=== PATIENT | male | born 1965 | race Caucasian/White ===

== ENCOUNTER 2021-06-25 09:05 | Observation (INO) | payer BC ==
[~2021-06-25] VITALS: Ht 182.9 cm; Wt 127.4 kg
--- NOTE | 2021-06-25 09:17 | PHYS DOC ---
General Adult EDM: Chief Complaint: CHEST PAIN HPI: HPI: Patient is a 55 year old male who presents with substernal and left-sided chest pressure, with dyspnea and dizziness and nausea. 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 He felt like he had significant pressure on his chest while he was lying down working. Symptoms are slightly improved now. He reports less severe chest pain symptoms intermittently for several months, however today's symptoms are much worse. Denies cough, hemoptysis, syncope, calf pain. He has chronic lower extremity swelling which is unchanged. He denies fevers or chills. He reports that his father had his first heart attack when he was age 51, and had severe coronary disease and ultimately developed what sounds like severe cardiomyopathy and congestive heart failure. The patient himself has no known history of any cardiac problems, though he has never seen a doctor of dental surgery and had frequently blown off his previous chest pain symptoms. Denies recent travel, surgery, hospitalization. Review of Systems: Review of Systems: Constitutional: Denies fever or chills. [] Eyes: Denies change in visual acuity. [] HENT: Denies nasal congestion or sore throat. [] Respiratory: Denies cough. Reports dyspnea and chest pressure. Cardiovascular: Reports chest pain/pressure. GI: Denies abdominal pain, nausea, vomiting, bloody stools or diarrhea. [] : Denies dysuria. [] Musculoskeletal: Denies back pain or joint pain. He has chronic lower ex tremity swelling, which is unchanged and not painful. Integument: Denies rash. [] Neurologic: Denies headache, focal weakness or sensory changes. Denies syncope. Psychiatric: Denies depression or anxiety. [] Heart Score: C/O Chest Pain: Yes HEART Score for Chest Pain: HEART Score for Chest Pain Response (Comments) Value History Highly Suspicious 2 ECG Nonspecific Repolarizatio 1 Age >45 - < 65 1 Risk Factors >3 Risk Factors or Hx CAD 2 Troponin < Normal Limit 0 Total 6 Risk Factors: Risk Factors: DM, Current or recent (<one month) smoker, HTN, HLP, family history of CAD, obesity. Risk Scores: Score 0 - 3: 2.5% MACE over next 6 weeks - Discharge Home Score 4 - 6: 20.3% MACE over next 6 weeks - Admit for Clinical Observation Score 7 - 10: 72.7% MACE over next 6 weeks - Early Invasive Strategies Physical Exam: PE: Constitutional: Well developed, well nourished, no acute distress, non-toxic appearance. [] HENT: Normocephalic, atraumatic Eyes:, sclera are anicteric Neck: Normal range of motion, no tenderness, trachea is midline. Cardiovascular:Heart rate regular rhythm, +2 radial and posterior tibial pulses bilaterally. Lungs & Thorax: Bilateral breath sounds clear to auscultation [] Abdomen: Bowel sounds normal, soft, no tenderness, no masses, no pulsatile masses. [] Skin: Warm, dry, no erythema, no rash. [] Extremities: No tenderness, no cyanosis, no clubbing, ROM intact, bilateral lower extremity, nonpitting, symmetric edema. No calf tenderness. Neurologic: Alert and oriented X 3, normal motor function, normal sensory function, no focal deficits noted. [] Psychologic: Affect normal, judgement normal, mood normal. He is pleasant and cooperative. EKG: EKG: EKG is interpreted at 09 16 Rhythm is sinus Rate is 69 bpm [place] is normal No STEMI EKG is interpreted at 1035 Rhythm is sinus Rate is 67 bpm [place] is normal No STEMI Radiology/Procedures: Radiology/Procedures: IMAGING REPORT Signed PATIENT: OSWALD ZACARIAS ACCOUNT: [id number] : 1965 LOCATION: ER AGE: 55 SEX: M EXAM STATUS: PRE ER ORD. PHYSICIAN: IAN VALDEZ DO REASON: chest pain PROCEDURE: PORTABLE CHEST 1V EXAM: Chest, single view. HISTORY: Chest pain. COMPARISON: 09/25/2020 FINDINGS: A frontal view of the chest is obtained. There are chronic appearing interstitial changes. There is no consolidation, pleural effusion or pneumo thorax. The heart is normal in size. There is cervical spinal fusion instrumentation. There has been suspected incidental distal right clavicular resection. IMPRESSION: No acute pulmonary finding. Electronically signed by: Shaunna Valdes MD (06/25/2021 9:53 AM) [id number] DICTATED and SIGNED BY: SHAUNNA VALDES MD DATE: 06/25/21 [id number] Course & Med Decision Making: Course & Med Decision Making Pertinent Labs and Imaging studies reviewed. (See chart for details) The patient is given aspirin. Sublingual nitroglycerin resolved his pain. His blood pressure is stable, he is resting comfortably, he feels much better. I have discussed the findings, differential diagnosis and plan of care with him. I have recommended admission for serial troponin exams and cardiology consultation. He is agreeable to this. He is accepted for admission by Dr. Mendes. Blake Disclaimer: Blake Disclaimer: This electronic medical record was generated, in whole or in part, using a voice recognition dictation system. Departure Departure Impression: Primary Impression: Chest pain Qualified Codes: R07.2 - Precordial pain Disposition: ADMITTED INPATIENT Admitting Physician: LANIE Condition: STABLE COURTNEYIAN DO Jun 25, 2021 09:17
[2021-06-25] MEDS ORDERED: ASPIRIN ENTERIC COATED 325 MG TABLET.DR. PO ONE (09:45)
--- NOTE | 2021-06-25 09:56 | RAD ---
EXAM: Chest, single view. HISTORY: Chest pain. COMPARISON: 09/25/2020 FINDINGS: A frontal view of the chest is obtained. There are chronic appearing interstitial changes. There is no consolidation, pleural effusion or pneumothorax. The heart is normal in size. There is ce rvical spinal fusion instrumentation. There has been suspected incidental distal right clavicular res ection. IMPRESSION: No acute pulmonary finding. Electronically signed by: Shaunna Cobian MD (06/25/2021 9:53 AM) [id number]
[2021-06-25 10:04] LABS: BASO # 0.1 x10^3/uL (0.0-0.2); BASO % 1 % (0-3); EOS # 0.1 x10^3/uL (0.0-0.7); EOS % 1 % (0-3); HEMATOCRIT 35.7 % (39.0-53.0); HEMOGLOBIN 12.2 g/dL (13.0-17.5); LYMPH # 1.7 x10^3/uL (1.0-4.8); LYMPH % 25 % (24-48); MEAN CORPUSCULAR HEMOGLOBIN 32 pg (25-35); MEAN CORPUSCULAR HGB CONC 34 g/dL (31-37); MEAN CORPUSCULAR VOLUME 94 fL (79-100); MONO # 0.4 x10^3/uL (0.0-1.1); MONO % 7 % (0-9); NEUT # 4.5 x10^3/uL (1.8-7.7); NEUT % 66 % (31-73); PLATELET COUNT 276 x10^3/uL (140-400); RED BLOOD COUNT 3.79 x10^6/uL (4.30-5.70); RED CELL DISTRIBUTION WIDTH 13.7 % (11.5-14.5); WHITE BLOOD COUNT 6.8 x10^3/uL (4.0-11.0)
[2021-06-25] MEDS: NITROGLYCERIN SUBLINGUAL 0.4 MG BOTTLE OF 25. SL PRN ×3 (10:05→10:31)
[2021-06-25 10:09] LABS: CALCIUM 7.6 mg/dL (8.5-10.1); CREATININE 0.7 mg/dL (0.7-1.3); GFR 117.5; MAGNESIUM 1.8 mg/dL (1.8-2.4); POTASSIUM 3.5 mmol/L (3.5-5.1)
--- NOTE | 2021-06-25 10:12 | EKG ---
[facility] [address] [place] [address] Test Date: 2021-06-25 Test Time: 09:14:25 Pat Name: OSWALD ZACARIAS Department: Room: Gender: M Vp Strategy: : 1965 Requested By: IAN VALDEZ Order Number: [id number] Reading MD: Cong Martini MD Measurements Intervals [place] Rate: 69 P: 29 AR: 148 QRS: 19 QRSD: 86 T: 24 QT: 392 QTc: 422 Interpretive Statements SINUS RHYTHM Electronically Signed On 06-25-2021 10:59:01 CDT by Cong Martini MD
[2021-06-25 10:56] LABS: BILIRUBIN,URINE NEGATIVE (NEG); CLARITY,URINE CLEAR; COLOR,URINE YELLOW; NITRITE,URINE NEGATIVE (NEG); PH,URINE 7.5 (<5.0-8.0); PROTEIN,URINE NEGATIVE (NEG-TRACE); UROBILINOGEN,URINE 0.2 mg/dL (0.2 mg/dL)
[2021-06-25] MEDS ORDERED: ONDANSETRON PF 4 MG/2 ML VIAL. IVP PRN (11:00)
[2021-06-25 11:10] LABS: BACTERIA,URINE 0 /HPF (0-FEW); RBC,URINE OCC /HPF (0-2); WBC,URINE 0 /HPF (0-4)
--- NOTE | 2021-06-25 11:44 | EKG ---
[facility] [address] [place] [address] Test Date: 2021-06-25 Test Time: 10:32:55 Pat Name: OSWALD ZACARIAS Department: Room: Gender: M Counter Server: : 1965 Requested By: IAN VALDEZ Order Number: [id number] Reading MD: Cong Martini MD Measurements Intervals [place] Rate: 67 P: 25 [place]: 162 QRS: 17 QRSD: 86 T: 24 QT: 428 QTc: 455 Interpretive Statements SINUS RHYTHM Electronically Signed On 06-25-2021 11:44:04 CDT by Cong Martini MD
--- NOTE | 2021-06-25 12:07 | PDOC2 ---
EITAN HOLLIDAY CONTRACT WRITER 06/25/21 1207: CARDIAC CONSULT DATE OF CONSULT Date of Consult DATE: 06/25/21 TIME: 12:04 REASON FOR CONSULT Reason for Consult: Chest pain REFERRING PHYSICIAN Referring Physician: Dr. Hazel SOURCE Source: Chart review, Patient HISTORY OF PRESENT ILLNESS HISTORY OF PRESENT ILLNESS This is a 55 yo male who presented secondary to chest pain. Patient reports intermittent sharp pain in his central chest over the last months. Has been occurring more frequently here recently. 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 This morning at work, developed pressure that radiated to his left arm and he reports heaviness in his left arm. Was fatigued and felt short of breath. Was also diaphoretic. Given significance of symptoms, he decided to come to the ED for further evaluation and treatment. No recent fevers or illness. No recent cardiac workup. Had stress test many years ago. PAST MEDICAL HISTORY Cardiovascular: HTN Endocrine: Diabetes ((borderline)) PAST SURGICAL HISTORY Past Surgical History: Other (left knee, right shoulder, and cervical neck surgery ) FAMILY HISTORY Family History: Cancer, Diabetes, Heart Disease, Stroke SOCIAL HISTORY Smoke: 1 pack per day ALCOHOL: social Drugs: None Lives: Alone CURRENT MEDICATIONS CURRENT MEDICATIONS Current Medications Medications (Trade) Dose Ordered Sig/Juanjose Route PRN Reason Start Time Stop Time Status Last Admin Dose Admin Aspirin (Ecotrin) 325 mg 1X ONCE PO 06/25/21 09:45 06/25/21 09:48 DC 06/25/21 10:05 Nitroglycerin (Nitrostat) 0.4 mg PRN Q5MIN PRN SL CHEST PAIN 06/25/21 09:45 06/25/21 10:31 ALLERGIES ALLERGIES: Coded Allergies: No Known Drug Allergies (Unverified , 06/25/21) ROS Review of System 14 point ROS conducted with pertinent positives noted above in HPI PHYSICAL EXAM General: Alert, Oriented X3, Cooperative, No acute distress HEENT: Atraumatic, Mucous membr. moist/pink Lungs: Clear to auscultation Heart: Regular rate Abdomen: Soft, No tenderness Extremities: No edema, Normal pulses Skin: No significant lesion Neuro: Normal speech, Sensation intact Psych/Mental Status: Mental status NL, Mood NL MUSCULOSKELETAL: Osteoarthritic changes both hands VITALS/I&O VITALS/I&O: Vital Signs Date Time Temp Pulse Resp B/P (MAP) Pulse Ox O2 Delivery O2 Flow Rate FiO2 10/25/21 11:30 58 16 118/73 (88) 98 Room Air 06/25/21 09:06 98.1 98.1 LABS Lab: Laboratory Tests Test 06/25/21 09:28 06/25/21 10:45 White Blood Count 6.8 x10^3/uL (4.0-11.0) Red Blood Count 3.79 x10^6/uL (4.30-5.70) L Hemoglobin 12.2 g/dL (13.0-17.5) L Hematocrit 35.7 % (39.0-53.0) L Mean Corpuscular Volume 94 fL (79-100) Mean Corpuscular Hemoglobin 32 pg (25-35) Mean Corpuscular Hemoglobin Concent 34 g/dL (31-37) Red Cell Distribution Width 13.7 % (11.5-14.5) Platelet Count 276 x10^3/uL (140-400) Neutrophils (%) (Auto) 66 % (31-73) Lymphocytes (%) (Auto) 25 % (24-48) Monocytes (%) (Auto) 7 % (0-9) Eosinophils (%) (Auto) 1 % (0-3) Basophils (%) (Auto) 1 % (0-3) Neutrophils # (Auto) 4.5 x10^3/uL (1.8-7.7) Lymphocytes # (Auto) 1.7 x10^3/uL (1.0-4.8) Monocytes # (Auto) 0.4 x10^3/uL (0.0-1.1) Eosinophils # (Auto) 0.1 x10^3/uL (0.0-0.7) Basophils # (Auto) 0.1 x10^3/uL (0.0-0.2) Sodium Level 141 mmol/L (136-145) Potassium Level 3.5 mmol/L (3.5-5.1) Chloride Level 106 mmol/L (98-107) Carbon Dioxide Level 25 mmol/L (21-32) Anion Gap 10 (6-14) Blood Urea Nitrogen 12 mg/dL (8-26) Creatinine 0.7 mg/dL (0.7-1.3) Estimated GFR (Cockcroft-Gault) 117.5 Glucose Level 91 mg/dL (70-99) Calcium Level 7.6 mg/dL (8.5-10.1) L Magnesium Level 1.8 mg/dL (1.8-2.4) Troponin I Quantitative < 0.017 ng/mL (0.000-0.055) CO-Nvd-K-Type Natriuretic Peptide 62 pg/mL (0-124) Urine Collection Type Unknown Urine Color Yellow Urine Clarity Clear Urine pH 7.5 (<5.0-8.0) Urine Specific [place] 1.010 (1.000-1.030) Urine Protein Negative mg/dL (NEG-TRACE) Urine Glucose (UA) Negative mg/dL (NEG) Urine Ketones (Stick) Negative mg/dL (NEG) Urine Blood Negative (NEG) Urine Nitrite Negative (NEG) Urine Bilirubin Negative (NEG) Urine Urobilinogen Dipstick 0.2 mg/dL (0.2 mg/dL) Urine Leukocyte Esterase Negative (NEG) Urine RBC Occ /HPF (0-2) Urine WBC 0 /HPF (0-4) Urine Bacteria 0 /HPF (0-FEW) Laboratory Tests 06/25/21 09:28 Laboratory Tests 06/25/21 09:28 ASSESSMENT/PLAN ASSESSMENT/PLAN 1. Chest pain, typical features; initial trop negative. EKG shows SR without any significant acute changes 2. Accelerated hypertension; now controlled 3. Tobaccoism; discussed/encouraged cessation Recommendations Trend trop Lipids ASA therapy Echo to assess LV systolic function Resume home anti HTN therapy when med list obtained Hydralazine IV PRN Will need further ischemic evaluation. Given symptomatology and significant risk factors, recommend left heart catheterization with possible PCI. R/b/a discussed with patient and he is agreeable . Keep NPO p MN Supportive care CHRISTIANO BARNEY MD 06/25/21 1705: CARDIAC CONSULT ASSESSMENT/PLAN ASSESSMENT/PLAN The patient was seen and interviewed as well as examined at the bedside. The chart was reviewed. The case was discussed. Agree with the plan of care. EITAN HOLLIDAY APRN Jun 25, 2021 12:07 CHRISTIANO BARNEY MD Jun 25, 2021 17:05
[2021-06-25 12:21] VITALS: BP 131/81
[2021-06-25] MEDS ORDERED: hydrALAZINE 20 MG/ML VIAL. IVP PRN (12:30)
[2021-06-25 12:35] LABS: CHOLESTEROL/HDL RATIO 4.3
--- NOTE | 2021-06-25 12:35 | PDOC1 ---
History and Physical Date of Admission Date of Admission DATE: 06/25/21 TIME: 12:31 Identification/Chief Complaint Chief Complaint Chest pain Source Source: Patient History of Present Illness History of Present Illness Patient is a 55-year-old male past medical history HTN, prediabetes, who presents to the ED with complaints of chest pain this morning approximately 1 hour prior to arrival in the ED. He reports pain that is more like pressure, 8/10, with associated shortness of breath. He denies any specific aggravating or alleviating factors, with my evaluation states his pain is improved with nitroglycerin. He does note a significant family history of PR in his father when he was in his 50s. Initial lab work was largely unremarkable; hemoglobin 12.2, hematocrit 35.7, PAP 62, troponin <0.017. Chest x-ray showed no acute cardiopulmonary process. Will admit patient for further medical management. Past Medical History Cardiovascular: HTN Endocrine: Other (Prediabetes) Past Surgical History Past Surgical History Right shoulder surgery, left knee surgery Past Surgical History: Arthroscopy Family History Family History: Coronary Artery Disease, Heart Disease Social History Smoke: 1 pack per day ALCOHOL: occassional Drugs: None Current Problem List Problem List Problems Medical Problems: (1) Chest pain Status: Acute Current Medications Current Medications Current Medications Aspirin (Ecotrin) 325 mg 1X ONCE PO Last administered on 06/25/21at 10:05; Start 06/25/21 at 09:45; Stop 06/25/21 at 09:48; Status DC Nitroglycerin (Nitrostat) 0.4 mg PRN Q5MIN PRN SL CHEST PAIN Last administered on 06/25/21at 10:31; Start 06/25/21 at 09:45 Ondansetron HCl (Zofran) 4 mg PRN Q8HRS PRN IVP NAUSEA/VOMITING; Start 06/25/21 at 11:00; Stop 06/26/21 at 10:59 Allergies Allergies: Coded Allergies: No Known Drug Allergies (Unverified , 06/25/21) ROS Review of System GENERAL: No history of weight change, weakness or fevers. SKIN: No bruising, hair changes or rashes. EYES: No blurred, double or loss of vision. NOSE AND THROAT: No history of nosebleeds, hoarseness or sore throat. HEART: Chest pain. Denies palpitations. LUNGS: Denies cough, hemoptysis, wheezing or shortness of breath. GASTROINTESTINAL: Denies nausea, vomiting, abdominal pain. GENITOURINARY: Denies dysuria, frequency, urgency, hematuria. NEUROLOGIC: Denies history of numbness, tingling, tremor or weakness. PSYCHIATRIC: Denies anxiety, denies depression. ENDOCRINE: No history of heat or cold intolerance, polyuria or polydipsia. EXTREMITIES: Denies muscle weakness, joint pain, pain on walking or stiffness. Physical Exam Physical Exam General: Alert, Oriented X3, Cooperative, No acute distress HEENT: PERRLA, EOMI Lungs: Clear to auscultation, Normal air movement Heart: RRR, no murmurs Cardiovascular: S1, S2 Abdomen: Normal bowel sounds, Soft, No tenderness Extremities: +2 bilateral lower extremity edema. No clubbing, No cyanosis Skin: No rashes, No significant lesion Neuro: Normal speech, Normal tone, Sensation intact Psych/Mental Status: Mental status NL, Mood NL Vitals Vitals Vital Signs Date Time Temp Pulse Resp B/P (MAP) Pulse Ox O2 Delivery O2 Flow Rate FiO2 06/25/21 12:21 97.7 61 16 131/81 (98) 100 Room Air 97.7 Labs Labs Laboratory Tests Test 06/25/21 09:28 06/25/21 10:45 White Blood Count 6.8 x10^3/uL (4.0-11.0) Red Blood Count 3.79 x10^6/uL (4.30-5.70) Hemoglobin 12.2 g/dL (13.0-17.5) Hematocrit 35.7 % (39.0-53.0) Mean Corpuscular Volume 94 fL (79-100) Mean Corpuscular Hemoglobin 32 pg (25-35) Mean Corpuscular Hemoglobin Concent 34 g/dL (31-37) Red Cell Distribution Width 13.7 % (11.5-14.5) Platelet Count 276 x10^3/uL (140-400) Neutrophils (%) (Auto) 66 % (31-73) Lymphocytes (%) (Auto) 25 % (24-48) Monocytes (%) (Auto) 7 % (0-9) Eosinophils (%) (Auto) 1 % (0-3) Basophils (%) (Auto) 1 % (0-3) Neutrophils # (Auto) 4.5 x10^3/uL (1.8-7.7) Lymphocytes # (Auto) 1.7 x10^3/uL (1.0-4.8) Monocytes # (Auto) 0.4 x10^3/uL (0.0-1.1) Eosinophils # (Auto) 0.1 x10^3/uL (0.0-0.7) Basophils # (Auto) 0.1 x10^3/uL (0.0-0.2) Sodium Level 141 mmol/L (136-145) Potassium Level 3.5 mmol/L (3.5-5.1) Chloride Level 106 mmol/L (98-107) Carbon Dioxide Level 25 mmol/L (21-32) Anion Gap 10 (6-14) Blood Urea Nitrogen 12 mg/dL (8-26) Creatinine 0.7 mg/dL (0.7-1.3) Estimated GFR (Cockcroft-Gault) 117.5 Glucose Level 91 mg/dL (70-99) Calcium Level 7.6 mg/dL (8.5-10.1) Magnesium Level 1.8 mg/dL (1.8-2.4) Troponin I Quantitative < 0.017 ng/mL (0.000-0.055) DY-Xrr-K-Type Natriuretic Peptide 62 pg/mL (0-124) Urine Collection Type Unknown Urine Color Yellow Urine Clarity Clear Urine pH 7.5 (<5.0-8.0) Urine Specific [place] 1.010 (1.000-1.030) Urine Protein Negative mg/dL (NEG-TRACE) Urine Glucose (UA) Negative mg/dL (NEG) Urine Ketones (Stick) Negative mg/dL (NEG) Urine Blood Negative (NEG) Urine Nitrite Negative (NEG) Urine Bilirubin Negative (NEG) Urine Urobilinogen Dipstick 0.2 mg/dL (0.2 mg/dL) Urine Leukocyte Esterase Negative (NEG) Urine RBC Occ /HPF (0-2) Urine WBC 0 /HPF (0-4) Urine Bacteria 0 /HPF (0-FEW) Laboratory Tests Test 06/25/21 09:28 06/25/21 10:45 White Blood Count 6.8 x10^3/uL (4.0-11.0) Red Blood Count 3.79 x10^6/uL (4.30-5.70) Hemoglobin 12.2 g/dL (13.0-17.5) Hematocrit 35.7 % (39.0-53.0) Mean Corpuscular Volume 94 fL (79-100) Mean Corpuscular Hemoglobin 32 pg (25-35) Mean Corpuscular Hemoglobin Concent 34 g/dL (31-37) Red Cell Distribution Width 13.7 % (11.5-14.5) Platelet Count 276 x10^3/uL (140-400) Neutrophils (%) (Auto) 66 % (31-73) Lymphocytes (%) (Auto) 25 % (24-48) Monocytes (%) (Auto) 7 % (0-9) Eosinophils (%) (Auto) 1 % (0-3) Basophils (%) (Auto) 1 % (0-3) Neutrophils # (Auto) 4.5 x10^3/uL (1.8-7.7) Lymphocytes # (Auto) 1.7 x10^3/uL (1.0-4.8) Monocytes # (Auto) 0.4 x10^3/uL (0.0-1.1) Eosinophils # (Auto) 0.1 x10^3/uL (0.0-0.7) Basophils # (Auto) 0.1 x10^3/uL (0.0-0.2) Sodium Level 141 mmol/L (136-145) Potassium Level 3.5 mmol/L (3.5-5.1) Chloride Level 106 mmol/L (98-107) Carbon Dioxide Level 25 mmol/L (21-32) Anion Gap 10 (6-14) Blood Urea Nitrogen 12 mg/dL (8-26) Creatinine 0.7 mg/dL (0.7-1.3) Estimated GFR (Cockcroft-Gault) 117.5 Glucose Level 91 mg/dL (70-99) Calcium Level 7.6 mg/dL (8.5-10.1) Magnesium Level 1.8 mg/dL (1.8-2.4) Troponin I Quantitative < 0.017 ng/mL (0.000-0.055) XZ-Moy-N-Type Natriuretic Peptide 62 pg/mL (0-124) Urine Collection Type Unknown Urine Color Yellow Urine Clarity Clear Urine pH 7.5 (<5.0-8.0) Urine Specific [place] 1.010 (1.000-1.030) Urine Protein Negative mg/dL (NEG-TRACE) Urine Glucose (UA) Negative mg/dL (NEG) Urine Ketones (Stick) Negative mg/dL (NEG) Urine Blood Negative (NEG) Urine Nitrite Negative (NEG) Urine Bilirubin Negative (NEG) Urine Urobilinogen Dipstick 0.2 mg/dL (0.2 mg/dL) Urine Leukocyte Esterase Negative (NEG) Urine RBC Occ /HPF (0-2) Urine WBC 0 /HPF (0-4) Urine Bacteria 0 /HPF (0-FEW) Images Images [facility] [address] [place] [address] IMAGING REPORT Signed PATIENT: OSWALD ZACARIAS ACCOUNT: [id number] : 1965 LOCATION: ER AGE: 55 SEX: M EXAM STATUS: PRE ER ORD. PHYSICIAN: IAN VALDEZ DO REASON: chest pain PROCEDURE: PORTABLE CHEST 1V EXAM: Chest, single view. HISTORY: Chest pain. COMPARISON: 09/25/2020 FINDINGS: A frontal view of the chest is obtained. There are chronic appearing interstitial changes. There is no consolidation, pleural effusion or pneumothorax. The heart is normal in size. There is cervical spinal fusion instrumentation. There has been suspected incidental distal right clavicular resection. IMPRESSION: No acute pulmonary finding. VTE Prophylaxis Ordered VTE Prophylaxis Devices: No VTE Pharmacological Prophylaxi: Yes Assessment/Plan Assessment/Plan Chest pain Normocytic anemia Plan: Initial troponin <0. 017; will continue to trend. Consultation placed to cardiology Echocardiogram pending We will obtain lipid panel and TSH FEN - Cardiac diet PPX - Heparin FULL CODE Dispo - observation for above Justifications for Admission Other Justification RYAN MORIN MD Jun 25, 2021 12:35
[2021-06-25] MEDS ORDERED: MORPHINE SULFATE 4 MG/ML INJ. IV PRN (12:45)
[2021-06-25] MEDS ORDERED: HYDROcodone/APAP 5/325MG 1 TAB TABLET PO PRN (13:15)
[2021-06-25] MEDS ORDERED: NICOTINE 21MG PATCH. TD PRN (13:15)
[2021-06-25] MEDS ORDERED: MAGNESIUM HYDROXIDE 2,400 MG/30 ML ORAL.SUSP. PO PRN (13:15)
[2021-06-25] MEDS ORDERED: ACETAMINOPHEN 325 MG TABLET. PO PRN (13:15)
[2021-06-25 14:19] VITALS: BP 145/80
--- NOTE | 2021-06-25 16:00 | CARD ---
MR#: [id number] Date of Study: 06/25/2021 Ordering Physician: EITAN HOLLIDAY, Referring Physician: EITAN HOLLIDAY, Tech: Elle Lopez [facility] APPROVED REPORT EXAM: Two-dimensional and M-mode echocardiogram with Doppler and color Doppler. Other Information Quality : AverageHR: 59bpm Rhythm : NSR INDICATION Chest Pain RISK FACTORS Hypertension Obesity Hyperlipidemia 2D DIMENSIONS RVDd4.2 (2.9-3.5cm)Left Atrium(2D)4.6 (1.6-4.0cm) IVSd1.2 (0.7-1.1cm)LVDd5.6 (3.9-5.9cm) LVOT Diameter2.7 (1.8-2.4cm)PWd1.2 (0.7-1.1cm) IVSs2.3 (0.8-1.2cm)LVDs3.5 (2.5-4.0cm) FS (%) 38.1 %PWs1.8 (0.8-1.2cm) SV105.3 mlLVEF(%)67.7 (>50%) Aortic Valve AoV Peak Fer.117.8cm/sAoV VTI22.9cm AO Peak GR.5.6mmHgLVOT Peak Fer.85.1cm/s LVOT VTI 19.21cmAO Mean GR.3mmHg HANNAH (VMAX)2.87tt7RIR (VTI)4.86cm2 Mitral Valve MV E Dxmxtyze54.1cm/sMV DECEL IVXK125xo MV A Qjsjgnoj26.1cm/sMV FPG93hb E/A Ratio1.6MVA (PHT)2.77cm2 TDI E/Lateral E'6.5E/Medial E'8.2 Pulmonary Valve PV Peak Vsgqhmrb483.4cm/sPV Peak Grad.5mmHg Tricuspid Valve TR P. Rzxknkgv645ne/sTR Peak Gr.28mmHg LEFT VENTRICLE The Left Ventricle is borderline dilated. There is borderline to mild concentric left ventricular hyp ertrophy. The left ventricular systolic function is normal and the ejection fraction is within normal range. Estimated EF 50-55%. There is normal LV segmental wall motion. The left ventricular diastolic function and filling is normal for age. RIGHT VENTRICLE The right ventricle is normal size. There is normal right ventricular wall thickness. The right ventr icular systolic function is normal. ATRIA The left atrium size is normal. The right atrium size is normal. The interatrial septum is intact wit h no evidence for an atrial septal defect or patent foramen ovale as noted on 2-D or Doppler imaging. AORTIC VALVE The aortic valve is normal in structure and function. Doppler and Color Flow revealed no significant aortic regurgitation. There is no significant aortic valvular stenosis. MITRAL VALVE The mitral valve is normal in structure and function. There is no evidence of mitral valve prolapse. There is no mitral valve stenosis. Doppler and Color-flow revealed trace to mild mitral regurgitation . TRICUSPID VALVE The tricuspid valve is normal in structure and function. Doppler and Color Flow revealed trace tricus pid regurgitation. Estimated PAP 23 mmHg. There is no tricuspid valve stenosis. PULMONIC VALVE Doppler and Color Flow revealed no pulmonic valvular regurgitation. There is no pulmonic valvular norma nosis. GREAT VESSELS The aortic root is normal in size. The ascending aorta is normal in size. The IVC is normal in size a nd collapses >50% with inspiration. PERICARDIAL EFFUSION There is no evidence of significant pericardial effusion. Critical Notification Critical Value: No <Conclusion> The left ventricular systolic function is normal and the ejection fraction is within normal range. E stimated EF 50-55%. There is normal LV segmental wall motion. Signed by : Cong Martini, Electronically Approved : 06/25/2021 15:59:34
[2021-06-25] MEDS ORDERED: AMLO-187 PO (16:28)
[2021-06-25 19:35] VITALS: BP 157/87
[2021-06-25] MEDS: HEPARIN for SUB-Q USE 5,000 UNIT/ML VIAL. SQ SCH (20:30)
[2021-06-25 23:10] VITALS: BP 130/68
[2021-06-26] VITALS (15 sets, daily range): BP systolic 130–185; BP diastolic 71–94
[2021-06-26] MEDS: HEPARIN for SUB-Q USE 5,000 UNIT/ML VIAL. SQ SCH ×2 (08:33→21:04)
[2021-06-26] MEDS: ASPIRIN ENTERIC COATED 81 MG TABLET.DR. PO SCH (08:42)
--- NOTE | 2021-06-26 11:27 | PDOC ---
[facility] PROGRESS NOTE Date of Service DOS: DATE: 06/26/21 TIME: 11:16 Chief Complaint Chief Complaint Chest pain HTN SOA Family Hx of CAD Family Hx of [place] History of Present Illness History of Present Illness 06/26 Patient seen and examined Pt sitting up in chair, comfortable Pt denied any chest pain, SOA at time of exam Discussed lab results with patient Charts reviewed Discussed with RN and SW Vitals/I&O Vitals/I&O: Vital Signs Date Time Temp Pulse Resp B/P (MAP) Pulse Ox O2 Delivery O2 Flow Rate FiO2 06/26/21 11:00 97.9 65 17 130/89 (103) 95 Room Air 97.9 I & O 06/25/21 06/25/21 06/26/21 15:00 23:00 07:00 Intake Total 0 ml 1080 ml 0 ml Output Total 350 ml Balance 0 ml 1080 ml -350 ml Physical Exam General: Alert, Oriented X3, Cooperative, No acute distress Heart: Regular rate Lungs: Clear Abdomen: Normal bowel sounds, Soft, No tenderness Extremities: No clubbing, No cyanosis, No edema, Normal pulses Skin: No rashes, No breakdown, No significant lesion Labs Labs: Laboratory Tests Test 06/25/21 12:30 06/25/21 16:40 06/25/21 20:31 Troponin I Quantitative < 0.017 ng/mL (0.000-0.055) < 0.017 ng/mL (0.000-0.055) SARS-CoV-2 Antigen (Rapid) Negative (NEGATIVE) Review of Systems Review of Systems: ROS negative Assessment and Plan Assessmemt and Plan Problems Medical Problems: (1) Chest pain Status: Acute Chest pain HTN Tobacco Use Family hx of CAD Family hx of [place] Plan Cardiology following patient, input appreciated Echo performed (EF 50-55%) Cardiology considering heart cath Continue serial EKGs Continue serial cardiac enzymes Continue monitoring on telemetry Continue anti HTN therapy Continue ASA PT/OT ordered Full Code Discharge disposition pending cardiology input Comment Review of Relevant I have reviewed the following items micah (where applicable) has been applied. Medications: Current Medications Medications (Trade) Dose Ordered Sig/Juanjose Route PRN Reason Start Time Stop Time Status Last Admin Dose Admin Heparin Sodium (Porcine) (Heparin Sodium) 5,000 unit Q12HR SQ 06/25/21 21:00 06/25/21 20:30 Aspirin (Ecotrin) 81 mg DAILYWBKFT PO 06/26/21 08:00 06/26/21 08:42 Amlodipine Besylate (Norvasc) 10 mg DAILY PO 06/26/21 09:00 06/26/21 08:42 Justifications for Admission Other Justification STEFANI FOWLER III DO Jun 26, 2021 11:27
[2021-06-26] MEDS ORDERED: IODIXANOL 320 MG/ML 100 ML VIAL. ONE ×2 (11:57→13:33)
[2021-06-26] MEDS ORDERED: LIDOCAINE 1% PF 2 ML VIAL. ONE (11:57)
[2021-06-26] MEDS ORDERED: MIDAZOLAM HCL/PF 2 MG/2 ML VIAL. ONE (13:00)
[2021-06-26] MEDS ORDERED: NITROGLYCERIN 200 MCG/2 ML SYRINGE FOR CATH/VASC LAB. ONE (13:00)
[2021-06-26] MEDS ORDERED: VERAPAMIL 5 MG/2 ML VIAL. ONE (13:00)
[2021-06-26] MEDS ORDERED: fentaNYL PF VIAL 100 MCG/2 ML VIAL ONE (13:00)
[2021-06-26] MEDS ORDERED: HEPARIN for IV BOLUS 10,000 UNIT/10 ML VIAL. ONE (13:00)
[2021-06-26] MEDS ORDERED: TIROFIBAN 5MG -0.9% NS 100 ML IV ONE (13:21)
[2021-06-26] MEDS ORDERED: fentaNYL PF VIAL 100 MCG/2 ML VIAL IV ONE (13:45)
[2021-06-26] MEDS ORDERED: TIROFIBAN 5MG -0.9% NS 100 ML IV PRN (13:45)
[2021-06-26] MEDS ORDERED: VERAPAMIL 5 MG/2 ML VIAL. IART ONE (13:45)
[2021-06-26] MEDS ORDERED: NITROGLYCERIN 200 MCG/2 ML SYRINGE FOR CATH/VASC LAB. IART ONE (13:45)
[2021-06-26] MEDS ORDERED: HEPARIN for IV BOLUS 10,000 UNIT/10 ML VIAL. IART ONE (13:45)
[2021-06-26] MEDS ORDERED: MIDAZOLAM HCL/PF 2 MG/2 ML VIAL. IV ONE (13:45)
[2021-06-26] MEDS ORDERED: IODIXANOL 320 MG/ML 100 ML VIAL. IART ONE (13:45)
[2021-06-26] MEDS ORDERED: LIDOCAINE 1% PF 2 ML VIAL. INJ ONE (13:45)
[2021-06-26] MEDS ORDERED: HEPARIN for IV BOLUS 10,000 UNIT/10 ML VIAL. IV ONE (13:45)
[2021-06-26] MEDS ORDERED: PRASUGREL 10 MG TABLET. ONE (13:52)
[2021-06-26] MEDS ORDERED: NITROGLYCERIN 200 MCG/2 ML SYRINGE FOR CATH/VASC LAB. ICAR ONE (14:00)
[2021-06-26] MEDS ORDERED: PRASUGREL 10 MG TABLET. PO ONE (14:00)
--- NOTE | 2021-06-26 14:55 | CARD ---
MR#: [id number] Date of Study: 06/26/2021 Ordering Physician: EITAN HOLLIDAY, Referring Physician: EITAN HOLLIDAY, Tech: RT Gonzalez(R) APPROVED REPORT Technologist: Gi Posadas RT(R) Nurse: Miriam oNlen RN Procedure(s) performed: MODERATE SEDATION TIME: 59 Min FLUORO TIME: 11.2 MIN DOSE: 228 GYCM2 CONTRAST: 171CC VISI LHC, Coronary angiography PCI of the RCA iFR of the LAD INDICATION The indication(s) include : unstable angina . [facility] Clinical Frailty Scale [facility] Clinical Frailty Scale: Managing Well Heart Failure Heart Failure: No CASE TECHNIQUE IV conscious sedation was used throughout procedure with appropriate monitoring and was performed in the presence of a registered nurse who was an independent trained observer other than the physician p erforming the procedure. During this case, Fluoroscopy and low osmolar contrast were used for imaging . Specimen(s) Removed: N/A Estimated Blood loss: 30 cc's. PROCEDURE NARRATIVE Clinical information: 55-year-old male coming into the hospital for significant chest pain. Overall consistent with unstab le angina. Given his risk factors he was taken to the catheterization laboratory for further evaluat ion and treatment. Informed consent: Written informed consent was obtained from the patient after adequate discussion of the risks and kylee efits of the procedure. Procedure details: ACCESS: The right wrist was prepped and draped in usual sterile fashion. Under 1% lidocaine local anesthesia a 6 Grenadian Terumo sheath was placed in the right radial artery via the Seldinger technique. DIAGNOSTIC ANGIOGRAPHY: Right and left coronary arteries were engaged with a 6 Grenadian TIG catheter. Diagnostic angiography i n multiple views were obtained. Next, a 6 Grenadian pigtail catheter was placed in the left ventricle a nd a LVEDP was measured. A pullback was performed. All catheters were exchanged over J-tip guidewir e. FINDINGS: ======= Aorta: 110/80 LVEDP: 10 mmHg Left ventriculogram: Deferred due to known normal ejection fraction of 55%. Coronary angiography: LM: Large caliber vessel with normal angiographic appearance LAD: Large caliber vessel with a mid to distal 50% stenosis D1: Mod caliber vessel with mild luminal irregularity LCX: Moderate to large caliber codominant vessel with mild luminal irregularities OM1: Moderate caliber vessel with normal angiographic appearance RCA: Large caliber dominant vessel with mid 80% stenosis RPDA: Moderate caliber vessel with mild luminal irregularities. Interventional technique: Heparin and tirofiban were used for anticoagulation. Through a 6 Grenadian AR-1 guide catheter a Prowat er wire was placed in the distal RCA. Balloon angioplasty was then performed with a 3.5 x 15 mm ball oon and then the lesion in the mid RCA was stented with a resolute 4.0 x 26 mm drug-eluting stent. T his was postdilated with a 4 mm noncompliant balloon at 14 sergio. Final angiography demonstrated excel lent stent expansion and BEN-3 flow in the RCA and no evidence of guide or wire related complication s. Attention was then turned to the LAD. Through a EBU 3.5 guide catheter a Maskell IFR wire was placed in the distal LAD after appropriate normalization and intracoronary nitroglycerin administration. T he IFR value was measured at 0.90 with a pullback of 0.89. Further intervention was deferred in favo r of medical therapy. The patient received 60 mg of prasugrel at case completion. CLOSURE: At case completion the right radial sheath was removed and a Terumo radial band was applied with 11 m L of air. Hemostasis was achieved. COMPLICATIONS: No acute complications noted BEN Flow BEN Flow (Pre-Intervention): BEN-3 BEN Flow (Post-Intervention): BEN-3 Conclusion 1. Normal left ventricular filling pressures. 2. Two-vessel coronary artery disease 3. Successful PCI of the mid RCA with implantation of a 4.0 x 26 mm resolute drug-eluting stent 4. Negative IFR at 0.90 of the mid LAD Recommendations 1. Aspirin 81 mg daily 2. Prasugrel 10 mg daily 3. High-dose statin therapy 4. Cardiac rehabilitation referral. Signed by : Cong Martini, Electronically Approved : 06/26/2021 14:54:48
--- NOTE | 2021-06-26 16:28 | NUR ---
SS following for discharge planning. SS reviewed pt chart and discussed with pt RN. Pt is from home and is currently on room air. COVID19 negative. Pt had heart cath today. PT/OT ordered. SS will continue to follow for discharge planning.
[2021-06-27 03:00] VITALS: BP 126/67
[2021-06-27 05:19] LABS: BASO % 1 % (0-3); EOS # 0.1 x10^3/uL (0.0-0.7); EOS % 2 % (0-3); HEMOGLOBIN 13.4 g/dL (13.0-17.5); LYMPH # 2.2 x10^3/uL (1.0-4.8); LYMPH % 29 % (24-48); MEAN CORPUSCULAR HEMOGLOBIN 32 pg (25-35); MEAN CORPUSCULAR HGB CONC 34 g/dL (31-37); MEAN CORPUSCULAR VOLUME 94 fL (79-100); MONO # 0.4 x10^3/uL (0.0-1.1); MONO % 6 % (0-9); NEUT # 4.8 x10^3/uL (1.8-7.7); NEUT % 63 % (31-73); PLATELET COUNT 277 x10^3/uL (140-400); RED BLOOD COUNT 4.23 x10^6/uL (4.30-5.70); RED CELL DISTRIBUTION WIDTH 13.7 % (11.5-14.5); WHITE BLOOD COUNT 7.6 x10^3/uL (4.0-11.0)
[2021-06-27 05:38] LABS: CALCIUM 8.2 mg/dL (8.5-10.1); CREATININE 0.8 mg/dL (0.7-1.3); GFR 100.7; POTASSIUM 3.7 mmol/L (3.5-5.1)
[2021-06-27 07:00] VITALS: BP 142/91
[2021-06-27] MEDS ORDERED: PRASUGREL 10 MG TABLET. PO SCH (08:00)
[2021-06-27] MEDS: ASPIRIN ENTERIC COATED 81 MG TABLET.DR. PO SCH (08:10)
[2021-06-27] MEDS: HEPARIN for SUB-Q USE 5,000 UNIT/ML VIAL. SQ SCH (08:14)
[2021-06-27 11:00] VITALS: BP 149/80
[2021-06-27] MEDS ORDERED: ASPI-886 PO (11:10)
[2021-06-27] MEDS ORDERED: ATOR40TA59 PO (11:10)
[2021-06-27] MEDS ORDERED: NITR0.4T24 SL (11:10)
[2021-06-27] MEDS ORDERED: PRAS10TA10 PO (11:10)
--- NOTE | 2021-06-27 11:31 | PDOC ---
[facility] PROGRESS NOTE Date of Service DOS: DATE: 06/27/21 TIME: 11:22 Chief Complaint Chief Complaint Chest pain HTN SOA Family Hx of CAD Family Hx of [place] History of Present Illness History of Present Illness 06/27 Patient examined and seen at bedside Chart reviewed No acute overnight events Discussed heart cath and PCI with pt and spouse (received JOSEPH to mid RCA) Discussed need for follow up and adherence to med changes Pt states he feels better and requesting discharge LORNARN and MADYSON 06/26 Patient seen and examined Pt sitting up in chair, comfortable Pt denied any chest pain, SOA at time of exam Discussed lab results with patient Charts reviewed Discussed with RN and MADYSON Vitals/I&O Vitals/I&O: Vital Signs Date Time Temp Pulse Resp B/P (MAP) Pulse Ox O2 Delivery O2 Flow Rate FiO2 06/27/21 08:11 61 142/91 06/27/21 08:00 Room Air 06/27/21 07:00 97.8 16 95 97.8 06/26/21 14:12 2.0 I & O 06/26/21 06/26/21 06/27/21 15:00 23:00 07:00 Intake Total 0 ml 300 ml 1100 ml Balance 0 ml 300 ml 1100 ml Physical Exam General: Alert, Oriented X3, Cooperative, No acute distress Heart: Regular rate Lungs: Clear Abdomen: Normal bowel sounds, Soft, No tenderness Extremities: No clubbing, No cyanosis, No edema, Normal pulses Skin: No rashes, No breakdown, No significant lesion Labs Labs: Laboratory Tests Test 06/26/21 13:39 06/27/21 04:20 Activated Clotting Time 126 sec (92-181) White Blood Count 7.6 x10^3/uL (4.0-11.0) Red Blood Count 4.23 x10^6/uL (4.30-5.70) Hemoglobin 13.4 g/dL (13.0-17.5) Hematocrit 40.0 % (39.0-53.0) Mean Corpuscular Volume 94 fL (79-100) Mean Corpuscular Hemoglobin 32 pg (25-35) Mean Corpuscular Hemoglobin Concent 34 g/dL (31-37) Red Cell Distribution Width 13.7 % (11.5-14.5) Platelet Count 277 x10^3/uL (140-400) Neutrophils (%) (Auto) 63 % (31-73) Lymphocytes (%) (Auto) 29 % (24-48) Monocytes (%) (Auto) 6 % (0-9) Eosinophils (%) (Auto) 2 % (0-3) Basophils (%) (Auto) 1 % (0-3) Neutrophils # (Auto) 4.8 x10^3/uL (1.8-7.7) Lymphocytes # (Auto) 2.2 x10^3/uL (1.0-4.8) Monocytes # (Auto) 0.4 x10^3/uL (0.0-1.1) Eosinophils # (Auto) 0.1 x10^3/uL (0.0-0.7) Basophils # (Auto) 0.0 x10^3/uL (0.0-0.2) Sodium Level 139 mmol/L (136-145) Potassium Level 3.7 mmol/L (3.5-5.1) Chloride Level 105 mmol/L (98-107) Carbon Dioxide Level 25 mmol/L (21-32) Anion Gap 9 (6-14) Blood Urea Nitrogen 14 mg/dL (8-26) Creatinine 0.8 mg/dL (0.7-1.3) Estimated GFR (Cockcroft-Gault) 100.7 Glucose Level 117 mg/dL (70-99) Calcium Level 8.2 mg/dL (8.5-10.1) Review of Systems Review of Systems: ROS negative Assessment and Plan Assessmemt and Plan Problems Medical Problems: (1) Chest pain Status: Acute Chest pain HTN SOA Tobacco Use Family hx of CAD Family hx of [place] Plan Plan for discharge today, for now continue the following: Cardiology following patient, input appreciated Echo performed (EF 50-55%) Cardiology performed heart cath and PCI (JOSEPH in mid RCA) Continue serial EKGs Continue serial cardiac enzymes Continue monitoring on telemetry Continue anti HTN therapy Continue ASA Added prasgrurel, atorvastatin and nitroglycerin, per cardiology PT/OT ordered Full Code Discharge today, pending subspecialist approval Comment Review of Relevant I have reviewed the following items micah (where applicable) has been applied. Medications: Current Medications Medications (Trade) Dose Ordered Sig/Juanjose Route PRN Reason Start Time Stop Time Status Last Admin Dose Admin Nitroglycerin (Nitroglycerin) 200 mcg 1X ONCE IART 06/26/21 13:45 06/26/21 13:46 DC 06/26/21 14:11 Verapamil HCl (Verapamil) 2.5 mg 1X ONCE IART 06/26/21 13:45 06/26/21 13:46 DC 06/26/21 14:11 Heparin Sodium (Porcine) (Heparin Sodium) 2,500 unit 1X ONCE IART 06/26/21 13:45 06/26/21 13:46 DC 06/26/21 14:14 Heparin Sodium/ Sodium Chloride (HEPARIN for ARTERIAL LINE FLUSH) 1,000 unit 1X ONCE IART 06/26/21 13:45 06/26/21 13:46 DC 06/26/21 14:11 Midazolam HCl (Versed) 2 mg 1X ONCE IV 06/26/21 13:45 06/26/21 13:46 DC 06/26/21 14:12 Fentanyl Citrate (Fentanyl 2ml Vial) 100 mcg 1X ONCE IV 06/26/21 13:45 06/26/21 13:46 DC 06/26/21 14:12 Iodixanol (Visipaque 320) 100 ml 1X ONCE IART 06/26/21 13:45 06/26/21 13:46 DC 06/26/21 14:11 Heparin Sodium (Porcine) (Heparin Sodium) 3,500 unit 1X ONCE IV 06/26/21 13:45 06/26/21 13:46 DC 06/26/21 14:14 Tirofiban/Sodium Chloride 100 ml @ 0 mls/hr CONT PRN IV PER PROTOCOL 06/26/21 13:45 06/27/21 07:44 DC 06/26/21 14:13 Lidocaine HCl (Xylocaine-Mpf 1% 2ml Vial) 2 ml 1X ONCE INJ 06/26/21 13:45 06/26/21 13:46 DC 06/26/21 14:12 Nitroglycerin (Nitroglycerin) 200 mcg 1X ONCE ICAR 06/26/21 14:00 06/26/21 14:01 DC 06/26/21 14:11 Prasugrel (Effient) 60 mg 1X ONCE PO 06/26/21 14:00 06/26/21 14:01 DC 06/26/21 14:11 Prasugrel (Effient) 10 mg DAILYWBKFT PO 06/27/21 08:00 06/27/21 08:10 Justifications for Admission Other Justification STEFANI FOWLER III DO Jun 27, 2021 11:30
--- NOTE | 2021-06-27 12:02 | PDOC ---
EITAN HOLLIDAY CHIEF OF STAFF 06/27/21 1202: CARDIO Progress Notes Date and Time Date of Service 06/27/21 Time of Evaluation 1200 Subjective Subjective: No Chest Pain, No shortness of breath, No Palpitations Vitals Vitals Vital Signs Date Time Temp Pulse Resp B/P (MAP) Pulse Ox O2 Delivery O2 Flow Rate FiO2 06/27/21 11:00 97.8 66 16 149/80 (103) 97 Room Air 97.8 06/26/21 14:12 2.0 Weight Weight [ ] Input and Output Intake and Output Intake and Output 06/27/21 07:00 Intake Total 1400 ml Balance 1400 ml Intake Oral 1400 ml # Voids 3 Laboratory Labs Laboratory Tests Test 06/26/21 13:39 06/27/21 04:20 Activated Clotting Time 126 sec (92-181) White Blood Count 7.6 x10^3/uL (4.0-11.0) Red Blood Count 4.23 x10^6/uL (4.30-5.70) Hemoglobin 13.4 g/dL (13.0-17.5) Hematocrit 40.0 % (39.0-53.0) Mean Corpuscular Volume 94 fL (79-100) Mean Corpuscular Hemoglobin 32 pg (25-35) Mean Corpuscular Hemoglobin Concent 34 g/dL (31-37) Red Cell Distribution Width 13.7 % (11.5-14.5) Platelet Count 277 x10^3/uL (140-400) Neutrophils (%) (Auto) 63 % (31-73) Lymphocytes (%) (Auto) 29 % (24-48) Monocytes (%) (Auto) 6 % (0-9) Eosinophils (%) (Auto) 2 % (0-3) Basophils (%) (Auto) 1 % (0-3) Neutrophils # (Auto) 4.8 x10^3/uL (1.8-7.7) Lymphocytes # (Auto) 2.2 x10^3/uL (1.0-4.8) Monocytes # (Auto) 0.4 x10^3/uL (0.0-1.1) Eosinophils # (Auto) 0.1 x10^3/uL (0.0-0.7) Basophils # (Auto) 0.0 x10^3/uL (0.0-0.2) Sodium Level 139 mmol/L (136-145) Potassium Level 3.7 mmol/L (3.5-5.1) Chloride Level 105 mmol/L (98-107) Carbon Dioxide Level 25 mmol/L (21-32) Anion Gap 9 (6-14) Blood Urea Nitrogen 14 mg/dL (8-26) Creatinine 0.8 mg/dL (0.7-1.3) Estimated GFR (Cockcroft-Gault) 100.7 Glucose Level 117 mg/dL (70-99) Calcium Level 8.2 mg/dL (8.5-10.1) Physical Exam HEENT: Neck Supple W Full Motion Chest: Symmetric LUNGS: Clear to Auscultation Heart: RRR Abdomen: Soft N/T Extremities: No Edema Neurology: alert, oriented, follow commands Assessment Assessment 1. CAD; cath with two-vessel disease. S/p successful PCI/JOSEPH of the mid RCA. Ne gative IFR at 0.90 of the mid LAD. Echo with preserved LV systolic function 2. Accelerated hypertension; now controlled 3. Diabetes, II 4. Tobaccoism; reinforced cessation Recommendations Secondary prevention including DAPT with ASA/Prasugrel, high-dose statin therapy No BB with baseline low-end HR Keshawn stratification modification Cardiac rehab referral Follow up in our office with Dr. Martini as scheduled. Justicifation of Admission Dx: Justifications for Admission: Justification of Admission Dx: Yes Comments: CAD s/p PCI/stent CHRISTIANO MARTINI MD 06/27/21 190: CARDIO Progress Notes Plan Plan The patient was seen and interviewed as well as examined at the bedside. The chart was reviewed. The case was discussed. Agree with the plan of care. EITAN HOLLIDAY APRN Jun 27, 2021 12:02 CHRISTIANO MARTINI MD Jun 27, 2021 19:08
--- NOTE | 2021-06-27 12:46 | NUR ---
SS following up with discharge planning. SS reviewed pt chart and discussed with pt RN. Pt is currently on room air. COVID19 negative. Pt had heart cath on 06/26/2021. No PT/OT needs. Discharge order on the chart for home with self care.
--- NOTE | 2021-06-27 13:09 | NUR ---
Discharge Note: OSWALD ZACARIAS Discharge instructions and discharge home medications reviewed with Patient and a copy given. All questions have been answered and understanding verbalized. The following instructions and handouts were given: aspirin, nitroglycerin, prasugrel, atorvastatin, cornary angioplasty discharge instructions Patient discharged to home with self care via ambulatory.
--- NOTE | 2021-06-27 17:41 | DS ---
DATE OF DISCHARGE: 06/27/2021 ADMISSION DIAGNOSIS: Chest pain. DISCHARGE DIAGNOSES: 1. Status post cardiac catheterization with stent to the right coronary artery. 2. Hypertension. CONSULTS: Cardiology. PROCEDURE: Cardiac catheterization. HOSPITAL COURSE: The patient is a pleasant middle-aged male who presented with chest pain. We admitted the patient, did serial enzymes, serial EKGs and consulted Cardiology. His troponin never elevated; however, he had very suggestive symptoms of coronary artery disease. Dr. Martini took him to the [facility] and sure enough he needed a stent to the right coronary artery. Today, I saw on exam, he is doing great, wants to go home. I put the discharge orders in. We are going to discharge. DISPOSITION: Home. ACTIVITY: As tolerated. DIET: Cardiac. MEDICATIONS: Effient 10 mg p.o. daily, p.r.n. nitro 0.4 mg, atorvastatin 40 a day, aspirin 81 a day, amlodipine. We will continue his home amlodipine 10 mg a day. TOTAL TIME: 34 minutes. NOE/BENJIE DR: Carl TID: [id number]
[2021-06-27] MEDS ORDERED: ATORVASTATIN CALCIUM 40 MG TABLET. PO SCH (21:00)
== END 2021-06-27 13:00 | disposition home or self-care (01) ==
LOC: ER 09:05 → 6 SOUTH 11:36
PROVIDERS: ADMIT Family Medicine; ATTEND Family Medicine
DX: R07.89 Other chest pain (principal); Z20.822 Contact with and (suspected) exposure to COVID-19; D64.9 Anemia, unspecified; E11.9 Type 2 diabetes mellitus without complications; I10 Essential (primary) hypertension; I25.10 Atherosclerotic heart disease of native coronary artery without angina pectoris; F17.210 Nicotine dependence, cigarettes, uncomplicated; Z98.1 Arthrodesis status; Z79.899 Other long term (current) drug therapy; Z98.890 Other specified postprocedural states
CPT/HCPCS: 36415; 71045; 80048; 80061; 81001; 83036; 83735; 83880; 84443; 84484; 85025; 85347; 87426; 92928; 93005; 93306; 93458; 93571; 96372; 99152; 99153; 99285; C1725; C1769; C1874; C1887; C1894; G0378; J1644; J2250; J3010; J3246; J3490; Q9967; G0379